=== PATIENT | male | born 1940 | race American Indian/Alaskan Native ===

== ENCOUNTER 2018-08-28 08:49 | Outpatient (CLI) | payer BC ==
--- NOTE | 2018-08-28 14:29 | Nuclear Medicine Report ---
BONE SCAN: History: Prostate cancer. Comparison: None at this facility. After injection of isotope, gamma camera imaging of the bony system was done. There is a normal uptake of isotope throughout the bony structures without areas of significantly increased or decreased uptake. Normal uptake in the urinary system is seen. IMPRESSION: Negative bone scan.
== END 2018-08-28 08:50 | disposition home or self-care (01) ==
LOC: NM 08:49
PROVIDERS: ATTEND Urology
DX: C61 Malignant neoplasm of prostate (principal); K21.9 Gastro-esophageal reflux disease without esophagitis; I10 Essential (primary) hypertension; J45.909 Unspecified asthma, uncomplicated; Z87.891 Personal history of nicotine dependence
CPT/HCPCS: 78306; A9503

== ENCOUNTER 2018-09-02 10:22 | Day surgery (SDC) | payer BC ==
[2018-09-02] MEDS ORDERED: LACTATED RINGERS 1,000 ML IV SCH (10:39)
[2018-09-02] MEDS ORDERED: ANCEF/STERILE WATER 2 GM/20 ML 2 GM/20 ML SYRINGE IV NR (10:40)
[2018-09-02] MEDS ORDERED: PROVENTIL IH NR (11:00)
[2018-09-02] MEDS ORDERED: ZOFRAN ONE (11:41)
[2018-09-02] MEDS ORDERED: DIPRIVAN 10 MG/ML IV ONE (11:41)
[2018-09-02] MEDS ORDERED: SUBLIMAZE ONE ×2 (11:42→12:48)
[2018-09-02] MEDS ORDERED: NACL 0.9% IR ONE (12:05)
[2018-09-02] MEDS ORDERED: NACL 0.9% 1000 ML IR ONE (12:05)
[2018-09-02] MEDS ORDERED: WATER FOR IRRIG STERILE IR ONE ×2 (12:05)
--- NOTE | 2018-09-02 12:15 | Anesthesia Day of Surgery ---
Anesthesia Day of Surgery - Day of Surgery Patient Examined: Yes Patient H&P Reviewed: Yes Patient is NPO: Yes
--- NOTE | 2018-09-02 12:15 | Anesthesia Consultation ---
Anesthesia Consult and Med Hx Date of service: 09/02/18 - Airway Anesthetic Teeth Evaluation: Partials ROM Head & Neck: Adequate Mental/Hyoid Distance: Adequate Mallampati Class: Class II Intubation Access Assessment: Probably Good - Pulmonary Exam CTA: Yes - Cardiac Exam Cardiac Exam: RRR - Pre-Operative Health Status ASA Pre-Surgery Classification: ASA3 Proposed Anesthetic Plan: General - Pulmonary Hx Smoking: Yes (STOPPED 1992) Hx Asthma: Yes (no inhaler use in several years) Hx Respiratory Symptoms: Yes (recent URI with mild productive cough and nasal congestion) SOB: No Hx Sleep Apnea: Yes (compliant with CPAP) - Cardiovascular System Hx Hypertension: Yes (took amlodipine and lisinopril today) Hx Heart Attack/AMI: No Hx Percutaneous Transluminal Coronary Angioplasty (PTCA): No - Central Nervous System Hx Seizures: No CVA: No Hx Back Pain: Yes - Gastrointestinal Hx Ulcer: Yes Hx Gastroesophageal Reflux Disease: Yes (asymptomatic today) - Endocrine Hx Renal Disease: No Hx Liver Disease: No Hx Non-Insulin Dependent Diabetes: Yes Hx Thyroid Disease: No - Other Systems Hx Cancer: Yes (prostate) Hx Obesity: Yes - Additional Comments Anesthesia Medical History Comments: No hx anesthetic complications. Will administer albuterol neb preop given recent productive cough.
[2018-09-02] MEDS ORDERED: XYLOCAINE CARDIAC IV ONE (12:24)
--- NOTE | 2018-09-02 13:51 | Post Operative Note ---
Date of procedure: 09/02/18 Pre-op diagnosis: cap post xrt Post-op diagnosis: same Findings: small gland Procedure: cryo ablation dilatation cysto Anesthesia: GETA Surgeon: EFREM EPSTEIN Estimated blood loss: minimal Pathology: none Condition: stable Disposition: PACU
--- NOTE | 2018-09-02 13:52 | Discharge Summary ---
Short Stay Discharge Plan Activity: other (no straining ) Weight Bearing Status: Full Weight Bearing Diet: low fat, low cholesterol, low salt Wound: other (ice packs to perineum in RR) Durable Medical Equipment Needed Upon Discharge: other (home with chavez ) Follow up with: ERIC KNAPP DO [Primary Care Provider] - 7 Days EFREM EPSTEIN MD [Staff Physician] - 7 Days
[2018-09-02 14:47] VITALS: BP 134/53
--- NOTE | 2018-09-02 15:11 | Operative Report ---
PREOPERATIVE DIAGNOSIS: Recurrent prostate cancer. POSTOPERATIVE DIAGNOSIS: Recurrent prostate cancer. PROCEDURE: Cystoscopy, cryoablation of the prostate, urethral dilatation. SURGEON: Wisam Beryr MD ANESTHESIA: General. FINDINGS: This is a gentleman with a very small prostate. He now presents for cryoablation of the prostate with recurrent prostate cancer for salvage cryo. DESCRIPTION OF PROCEDURE: The patient brought to the operating room and placed on the operating table. Following induction of anesthesia, placed in lithotomy position, prepped and draped in usual sterile fashion. An 18-Stewart was attempted, but ____ resistant. There was a slight stricture with a little webbing. A wire easily passed into the bladder and we dilated that little webbing to 20-Tajik. A Councill catheter was placed and at this point, the ultrasound was placed and we had excellent visualization of a 12 to 18 gram prostate. After all the probes were checked, the probes 1 and 2 were placed and we placed an external sphincter in Denonvilliers fascia. He had a very prominent rectourethralis. Probes 5 and 6 and 3 and 4 were placed. Excellent visualization was achieved. The gland was very short 2-2.5 cm at the maximum. We were careful not to freeze distally, so it would not be incontinent and we had plenty of room from the rectum. After we checked and rechecked the probes a wire was put back through the Councill catheter and the warming catheter was placed under vision of the ultrasound. Once this was in place, we rechecked the probes and the first freeze was carried out. We froze 1 and 2 and then came down to 3 and 4 and then 5 and 6. Total time for frozen for each time was total of approximately 5 minutes. There was a very quick freeze. We watched this very carefully. At the end of the second freeze, the computer did not respond, so we disconnected the ____ immediately and allowed a passive thaw and then we rebooted the computer and had an active thaw. The patient tolerated the procedure well. A Councill catheter was placed through a wire was brought to recovery in stable condition. JOB# [id number] JERAMY/PACO
== END 2018-09-02 15:40 | disposition home or self-care (01) ==
LOC: OR 10:22
PROVIDERS: ATTEND Urology
DX: C61 Malignant neoplasm of prostate (principal); E11.9 Type 2 diabetes mellitus without complications; I10 Essential (primary) hypertension; J45.909 Unspecified asthma, uncomplicated; G47.30 Sleep apnea, unspecified; K21.9 Gastro-esophageal reflux disease without esophagitis; E66.9 Obesity, unspecified; Z68.32 Body mass index [BMI] 32.0-32.9, adult; Z79.84 Long term (current) use of oral hypoglycemic drugs; Z79.01 Long term (current) use of anticoagulants; Z87.891 Personal history of nicotine dependence; Z98.49 Cataract extraction status, unspecified eye
CPT/HCPCS: 55873; 82962; A4217; C1726; C1769; C2618; J0690; J2001; J2405; J2704; J3010; J7030; J7120